=== PATIENT | male | born 1940 | race Caucasian/White ===

== ENCOUNTER 2021-03-09 04:40 | Outpatient (CLI) | payer MEDICARE | END 2021-03-09 04:41 | disposition EMS.NT | LOC: EMS 04:40 | DX: Z03.89 Encounter for observation for other suspected diseases and conditions ruled out (principal) ==

== ENCOUNTER 2021-03-21 08:22 | Outpatient (CLI) | payer MEDICARE | END 2021-03-21 08:23 | disposition EMS.NT | LOC: EMS 08:22 | DX: Z03.89 Encounter for observation for other suspected diseases and conditions ruled out (principal) ==

== ENCOUNTER 2021-03-21 19:32 | Outpatient (CLI) | payer MEDICARE | END 2021-03-21 19:33 | disposition critical access hospital (66) | LOC: EMS 19:32 | DX: S51.012A Laceration without foreign body of left elbow, initial encounter (principal); R53.1 Weakness; W19.XXXA Unspecified fall, initial encounter | CPT/HCPCS: A0425; A0429 ==

== ENCOUNTER 2021-03-21 20:06 | Emergency (ER) | payer MEDICARE ==
--- NOTE | 2021-03-21 20:41 | ED Physician Documentation ---
PD HPI UPPER EXT INJURY - Stated complaint Stated Complaint: GLF/ELBOW PX - Chief complaint Chief Complaint: General - History obtained from History obtained from: Patient - History of Present Illness Location: Left, Elbow Type of injury: Fall (he states he has had weakness and unable to get up/walk on his own, which is new for him, for the past several days to a week.) Where injury occurred: Home (The patient reports falling this morning as he is having difficulty getting up from bed and struck his left elbow with a small laceration. However he has had difficulty with left arm and leg weakness for about a week and this is corroborated by his daughter at home that I talked with.), Other (Fallen on the 10th getting out of his car and struck his head but did not notice weakness at that time. Has noted progressive weakness of left arm and leg, with unable to walk due to left leg weakness the past 4 days or so, and was needing walker prior to that the past 10 days.) Timing - duration: Days (10-14 days of noticable progressive weakness left arm and leg.) Timing - details: Gradual onset, Still present Associated symptoms: Weakness, Numbness Similar symptoms before: Has not had sx before Review of Systems Constitutional: denies: Fever, Chills Nose: denies: Rhinorrhea / runny nose, Congestion Throat: denies: Sore throat Cardiac: denies: Chest pain / pressure, Palpitations Respiratory: denies: Dyspnea, Cough GI: reports: Constipation (for 4-5 days). denies: Abdominal Pain, Nausea, Vomiting, Diarrhea : denies: Dysuria Skin: reports: Laceration (s) (left elbow small laceration today.) Neurologic: reports: Focal weakness (left arm and leg for about 10 days.), Numbness Endocrine: denies: Weight loss Immunocompromised: denies: Immunocompromised PD PAST MEDICAL HISTORY - Past Medical History Cardiovascular: None Respiratory: None Neuro: None Endocrine/Autoimmune: None - Allergies Allergies/Adverse Reactions: Allergies Allergy/AdvReac Type Severity Reaction Status Date / Time No Known Drug Allergies Allergy Verified 03/21/21 20:21 - Living Situation Living Situation: reports: With family Living Arrangement: reports: At home - Social History Does the pt smoke?: No Does the pt drink ETOH?: No Does the pt have substance abuse?: No - Family History Family history: denies: CVA, Cerebral aneurysm - Immunizations Immunizations are current?: Yes - POLST Patient has POLST: No PD ED PE NORMAL - Vitals Vital signs reviewed: Yes - General General: Alert and oriented X 3, No acute distress, Well developed/nourished - HEENT HEENT: PERRL, EOMI, Other (small contusion left occiput with minimal tenderness. ) - Neck Neck: Supple, no meningeal sign, No bony TTP, No adenopathy - Cardiac Cardiac: RRR, No murmur - Respiratory Respiratory: Clear bilaterally - Abdomen Abdomen: Soft, Non tender - Male Male : Deferred - Rectal Rectal: Deferred - Back Back: No CVA TTP, No spinal TTP - Derm Derm: Normal color, Warm and dry - Extremities Extremities: No tenderness to palpate, Normal ROM s pain, No edema - Neuro Neuro: Alert and oriented X 3, Normal speech, Other (Decreased strength on the left arm and leg with drift noted on both. decreased sensation to pinprick and touch. Left elbow with 1 cm laceration without current bleeding nor FB. ) Eye Opening: Spontaneous Motor: Obeys Commands Verbal: Oriented GCS Score: 15 - Psych Psych: Normal mood, Normal affect Results - Vitals Vitals: Vital Signs - 24 hr 03/21/21 03/21/21 03/22/21 20:14 23:32 01:00 Temperature 36.4 C L Heart Rate 74 84 85 Respiratory 17 19 18 Rate Blood Pressure 123/90 H 142/90 H 144/85 H O2 Saturation 98 97 96 03/22/21 03/22/21 03:00 05:00 Temperature Heart Rate 81 62 Respiratory 18 18 Rate Blood Pressure 149/80 H 153/81 H O2 Saturation 94 94 Oxygen O2 Source Room air - EKG (time done) 20:16 Rate: Rate (enter#) (76) Rhythm: NSR (with PACs) [place]: Normal Intervals: Normal DC QRS: Normal Ischemia: Normal ST segments. No: ST elevation c/w ischemia, ST depression - Labs Labs: Laboratory Tests 03/21/21 03/21/21 03/21/21 20:30 20:30 20:30 WBC 8.4 RBC 5.17 Hgb 16.1 Hct 48.9 MCV 94.6 H MCH 31.1 H MCHC 32.9 RDW 14.9 Plt Count 272 MPV 10.0 Neut # (Auto) 5.8 Lymph # (Auto) 1.4 L [place] # (Auto) 1.0 Eos # (Auto) 0.1 Baso # (Auto) 0.0 Absolute Nucleated RBC 0.00 Nucleated RBC % 0.0 Sodium 141 Potassium 3.9 Chloride 103 Carbon Dioxide 27 Anion Gap 11.0 BUN 21 H Creatinine 0.8 Estimated GFR (MDRD) 93 Glucose 108 H Calcium 10.2 Magnesium 2.2 Total Bilirubin 1.1 H AST 20 ALT 17 Alkaline Phosphatase 54 Total Creatine Kinase 77 Troponin I High Sens 18.6 Total Protein 7.3 Albumin 3.9 Globulin 3.4 Albumin/Globulin Ratio 1.1 Lipase 18 L - Rads (name of study) chest xray Radiology: Prelim report reviewed (no acute process), See rad report head CT Radiology: Prelim report reviewed (right parietal brain mass with edema and some midline shift. 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 ), See rad report PD MEDICAL DECISION MAKING - ED course Complexity details: reviewed results, re-evaluated patient, considered differential (General onset weakness of left arm and leg. This led to a fall with a small elbow laceration today that does not need suturing. Incidental complaint of constipation. CT head shows mass effect from tumor right parietal. ), d/w patient ED course: There were no beds available in any facility with neurosurgery. [facility] would not even put on a waiting list at their list was too long. [facility] said to call back tomorrow. [facility] not have any beds available but would put him on a wait list once we pushed images to them. [facility] was over full. We will try again tomorrow. He is stable at this point. We can give regular steroids. Also stool softeners and laxatives. The elbow wound is fine and just was dressed after cleansing. Care of the patient is given over to the oncoming emergency physician. Departure - Departure Disposition: 02 Transfer Acute Care Hosp Clinical Impression: Acute left-sided weakness, Brain tumor, astrocytoma Elbow laceration Qualifiers: Encounter type: initial encounter Laterality: left Qualified Code(s): S51.012A - Laceration without foreign body of left elbow, initial encounter Constipation Qualifiers: Constipation type: unspecified constipation type Qualified Code(s): K59.00 - Constipation, unspecified Fall, accidental Qualifiers: Encounter type: initial encounter Qualified Code(s): W19.XXXA - Unspecified fall, initial encounter Condition: Stable Record reviewed to determine appropriate education?: Yes NIHSS - Level of Consciousness Level of consciousness: (0) Alert, Keenly responsive LOC Questions: (0) Answers both Q's correct LOC Commands: (0) Performs both correctly - Gaze Best Gaze: (0) Normal - Visual Visual: (0) No loss - Facial Palsy Facial Palsy: (1) Minor paralysis - Motor Arms (both separate) Motor Arm (right): (0) No drift Motor Arm (left): (1) Drift - Motor Legs (both separate) Motor Leg (right): (0) No drift Motor Leg (left): (2) Some effort against gravity - Limb Ataxia Limb Ataxia: (0) Absent - Sensory Sensory: (1) [id number] loss - Best Language Best Language: (0) No aphasia - Dysarthria Dysarthria: (0) Normal - Extinction and Inattention (formally neg Extinction and inattention: (0) No abnormality - Total Score/Results Total Score/Result: 5
[2021-03-21] MEDS ORDERED: SODIUM CHLORIDE 0.9% 1,000 ML IV STA (21:01)
[2021-03-21] MEDS ORDERED: DOCUSATE SODIUM 100 MG CAPSULE PO STA (21:03)
[2021-03-21] MEDS ORDERED: BISACODYL 10 MG SUPP PR STA (21:03)
[2021-03-21 21:11] LABS: BASOPHILS % (AUTO) 0.5 %; EOSINOPHILS # (AUTO) 0.1 10^3/uL (0.0-0.7); EOSINOPHILS % (AUTO) 1.2 %; HCT - HEMATOCRIT 48.9 % (42.0-52.0); HGB - HEMOGLOBIN 16.1 g/dL (14.0-18.0); LYMPHOCYTES # (AUTO) 1.4 10^3/uL (1.5-3.5); LYMPHOCYTES % (AUTO) 16.8 %; MEAN CORPUSCULAR HEMOGLOBIN 31.1 pg (27.0-31.0); MEAN CORPUSCULAR HGB CONC 32.9 g/dL (32.0-36.0); MEAN CORPUSCULAR VOLUME 94.6 fL (80.0-94.0); MONOCYTES % (AUTO) 11.4 %; NEUTROPHILS # (AUTO) 5.8 10^3/uL (1.5-6.6); NEUTROPHILS % (AUTO) 69.6 %; PLT - PLATELET COUNT 272 10^3/uL (130-450); RED BLOOD COUNT 5.17 10^6/uL (4.70-6.10); RED CELL DISTRIBUTION WIDTH 14.9 % (12.0-15.0); WHITE BLOOD COUNT 8.4 x10^3/uL (4.8-10.8)
[2021-03-21 21:22] LABS: ALBUMIN 3.9 g/dL (3.2-5.5); ALBUMIN/GLOBULIN RATIO 1.1 (1.0-2.2); BILIRUBIN,TOTAL 1.1 mg/dL (0.2-1.0); CALCIUM 10.2 mg/dL (8.5-10.3); CREATININE 0.8 mg/dL (0.6-1.2); MAGNESIUM 2.2 mg/dL (1.7-2.8); POTASSIUM 3.9 mmol/L (3.5-5.0); TOTAL PROTEIN 7.3 g/dL (6.7-8.2)
--- NOTE | 2021-03-21 21:23 | XRAY Report ---
PROCEDURE: Chest 1 View X-Ray INDICATIONS: chest pain TECHNIQUE: One view of the chest was acquired. COMPARISON: None FINDINGS: Surgical changes and devices: None. Lungs and pleura: No pleural effusions or pneumothorax. Lungs are clear. Mediastinum: Mediastinal contours appear normal. The heart is probably markedly enlarged. However, t here is a large hiatal hernia which contains abdominal contents, and makes evaluation of the cardiac size somewhat challenging. Bones and chest wall: No suspicious bony lesions. Overlying soft tissues appear unremarkable. IMPRESSION: Probable marked cardiomegaly. However, a large hiatal hernia makes evaluation of cardiac size challen ging. Consider chest CT. Reviewed by: Deshawn Tellez MD on 03/21/2021 9:21 PM [facility] Approved by: Deshawn Tellez MD on 03/21/2021 9:21 PM [facility] Station ID: [id number]
[2021-03-21] MEDS ORDERED: DEXAMETHASONE 10 MG/ML VIAL IVP STA (21:37)
--- NOTE | 2021-03-21 21:52 | CT Report ---
PROCEDURE: HEAD WO INDICATIONS: left sided weakness TECHNIQUE: Noncontrast 4.5 mm thick angled axial sections acquired from the foramen magnum to the vertex. For r adiation dose reduction, the following was used: automated exposure control, adjustment of mA and/or kV according to patient size. COMPARISON: None. FINDINGS: Image quality: Excellent. CSF spaces: Basal cisterns are patent. No extra-axial fluid collections. Ventricles are normal in size and shape. Brain: There is a cystic neoplasm centered in the right parietal deep white matter measuring approxim ately 6 cm in AP diameter. It also measures 6.4 cm in craniocaudal dimension and 3.6 cm in transverse dimension. There is significant associated vasogenic edema. There is mass effect on the posterior ho rn of the right lateral ventricle. There is midline shift which measures approximately 8 mm. The righ t ambient cistern is somewhat tight. No acute hemorrhage. No acute stroke. Skull and face: Calvarium and visualized facial bones are intact, without suspicious lesions. Sinuses: Visualized sinuses and mastoids are clear. 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 Recommend brain MRI with and without contrast. Reviewed by: Deshawn Tellez MD on 03/21/2021 9:51 PM PST Approved by: Deshawn Tellez MD on 03/21/2021 9:51 PM PST Station ID: [id number]
[2021-03-22] MEDS ORDERED: ACETAMINOPHEN 325 MG TABLET PO PRN (07:00)
[2021-03-22] MEDS ORDERED: polyethylene glycoL 3350 17 GM PACKET PO PRN (07:00)
[2021-03-22] MEDS: DEXAMETHASONE 10 MG/ML VIAL IVP SCH ×3 (07:10→21:14)
[2021-03-22] MEDS: DOCUSATE SODIUM 100 MG CAPSULE PO SCH ×2 (07:13→09:10)
[2021-03-22 09:58] LABS: B. PARAPERTUSSIS- RESP PCR PAN NOT DETECTED; B. PERTUSSIS- RESP PCR PANEL NOT DETECTED; C. PNEUMONIAE- RESP PCR PANEL NOT DETECTED; CORONAVIRUS 229E-RESP PCR NOT DETECTED; CORONAVIRUS HKU1-RESP PCR NOT DETECTED; CORONAVIRUS NL63-RESP PCR NOT DETECTED; CORONAVIRUS OC43-RESP PCR NOT DETECTED; HUMAN METAPNEUMOVIRUS NOT DETECTED; INFLUENZA A- RESP PCR PANEL NOT DETECTED; INFLUENZA B - RESP PCR PANEL NOT DETECTED; M. PNEUMONIAE- RESP PCR PANEL NOT DETECTED; PARAINFLUENZA VIRUS 1 NOT DETECTED; PARAINFLUENZA VIRUS 2 NOT DETECTED; PARAINFLUENZA VIRUS 3 NOT DETECTED; PARAINFLUENZA VIRUS 4 NOT DETECTED; RHINOVIRUS/ENTEROVIRUS NOT DETECTED; RSV- RESP PCR PANEL NOT DETECTED; SARS-CoV-2 -RESP PCR PANEL NOT DETECTED
[2021-03-22 13:00] LABS: BILIRUBIN,URINE NEGATIVE (NEGATIVE); GLUCOSE, URINE (UA) 100 mg/dL (NEGATIVE); KETONES,URINE (UA) 15 mg/dL (NEGATIVE); LEUKOCYTE ESTERASE, URINE NEGATIVE (NEGATIVE); NITRITE,URINE NEGATIVE (NEGATIVE); OCCULT BLOOD,URINE TRACE-INTA (NEGATIVE); PH,URINE 5.5 PH (5.0-7.5); PROTEIN,URINE NEGATIVE (NEGATIVE); UROBILINOGEN,URINE 0.2 (NORMAL) E.U./dL (NORMAL)
[2021-03-22 13:14] LABS: CLARITY,URINE CLEAR (CLEAR)
[2021-03-22 13:16] LABS: BACTERIA,URINE Few /HPF (None Seen); RBC,URINE None Seen /HPF (0-5); SQUAMOUS EPITHELIAL CELL,UR RARE Squamous (<= Few); WBC,URINE 0-3 /HPF (0-3)
[2021-03-23] MEDS: DEXAMETHASONE 10 MG/ML VIAL IVP SCH ×2 (06:45→21:01)
[2021-03-23] MEDS: DOCUSATE SODIUM 100 MG CAPSULE PO SCH (09:17)
--- NOTE | 2021-03-23 20:03 | ED Physician Documentation ---
ED Addendum - Addendum Addendum: 03/23/21 20:03 Patient stable today and in good spirits really no change in his clinical presentation. No beds available still. I did discuss this with the coding coordinator at the [facility] today to see if they had anything to offer.
[2021-03-23 21:57] VITALS: BP 138/95
== END 2021-03-23 22:08 | disposition short-term general hospital (02) ==
LOC: EDUNIT# → ED 20:06
DX: S51.012A Laceration without foreign body of left elbow, initial encounter (principal); W06.XXXA Fall from bed, initial encounter; C71.9 Malignant neoplasm of brain, unspecified; Z91.81 History of falling; K59.00 Constipation, unspecified
CPT/HCPCS: 36415; 70450; 71045; 80053; 81001; 82550; 83690; 83735; 84484; 85025; 87631; 93005; 96361; 96374; 96376; 99284; 99285; A9270; 0202U; 87086

== ENCOUNTER 2021-03-23 21:57 | Outpatient (CLI) | payer MEDICARE | END 2021-03-23 21:58 | disposition short-term general hospital (02) | LOC: EMS 21:57 | PROVIDERS: ATTEND Emergency Medicine | DX: R22.0 Localized swelling, mass and lump, head (principal); R27.8 Other lack of coordination; R29.6 Repeated falls | CPT/HCPCS: A0425; A0428 ==